=== PATIENT | female | born 1975 | race Caucasian/White ===

== ENCOUNTER 2018-05-04 09:26 | Day surgery (SDC) | payer OTHER ==
[2018-05-01 13:48] VITALS: BMI 31.1
[2018-05-04] MEDS ORDERED: MIDAZOLAM HCL 2 MG/2 ML SINGLE DOSE VIAL ONE (11:55)
[2018-05-04] MEDS ORDERED: PROPOFOL 20 ML ONE (12:54)
--- NOTE | 2018-05-04 13:41 | OP ---
Operative Note - Note: Operative Date: 05/04/18 Pre-Operative Diagnosis: Painful hardware both legs Operation: BALBIR both legs Surgeon: Juvenal Redmond Anesthesiologist/RETAIL ANALYTICS MANAGER: Omar Franco Anesthesia: General Operative Report Dictated: Yes
--- NOTE | 2018-05-04 13:42 | DS ---
Physical Examination Vital Signs: Vital Signs Temperature 97.8 F 05/04/18 10:54 Pulse Rate 64 05/04/18 10:54 Respiratory Rate 18 05/04/18 10:54 Blood Pressure 134/96 05/04/18 10:54 O2 Sat by Pulse Oximetry (%) 99 05/04/18 10:54 Discharge Summary Reason For Visit: SYMPTOMATIC HARDWARE - Instructions - Home Medications Comprehensive Discharge Medication List: Ambulatory Orders Albuterol Sulfate [Proair Respiclick] 90 mcg IH QID PRN 05/01/18 Methocarbamol [Robaxin -] 750 mg PO BID 05/01/18
[2018-05-04] MEDS ORDERED: ONDANSETRON 4 MG/2 ML VIAL ONE (14:11)
[2018-05-04] MEDS ORDERED: ONDANSETRON 4 MG/2 ML VIAL IVPUSH PRN (14:55)
[2018-05-04] MEDS ORDERED: oxyCODONE HCL 5 MG TABLET PO PRN ×2 (14:55)
[2018-05-04] MEDS ORDERED: LACTATED RINGERS SOLUTION 1,000 ML IV SCH (15:00)
[2018-05-04] MEDS ORDERED: oxyCODONE HCL 5 MG TABLET ONE (15:29)
[2018-05-04 18:25] VITALS: BP 110/63; PULSE 66; TEMP 98
--- NOTE | 2018-05-08 09:42 | PATH ---
Surgical Pathology Report Patient Name: JOYCE PICHARDO Med. Rec. #: [id number] /Age/Gender: 1975 (Age: 43) / F Account: [id number] Location: [facility] Taken: 05/04/2018 Received: 05/04/2018 Reported: 05/08/2018 Physicians: Juvenal Redmond M.D. Specimen(s) Received EXPLANTED HARDWARE Clinical History Painful hardware bilateral tibia Final Diagnosis EXPLANTED HARWARE, REMOVAL: CONSISTENT WITH HARDWARE. GROSS EXAMINATION ONLY. Electronically Signed Soniya Cid M.D. Gross Description Received fresh labeled "explanted hardware," are 4 ledezma metallic screws ranging from 4.0-5.0 cm in length. No soft tissue is present. No sections are submitted, gross only. /05/07/201805/07/2018
== END 2018-05-04 18:25 | disposition home or self-care (01) ==
LOC: FASU 09:26
PROVIDERS: ATTEND Orthopaedic Surgery
PROC: 0YP90YZ Removal of Other Device from Right Lower Extremity, Open Approach (ICD-10-PCS; 2018-05-04)
PROC: 0YPB0YZ Removal of Other Device from Left Lower Extremity, Open Approach (ICD-10-PCS; principal; 2018-05-04 12:59)
DX: T84.84XA Pain due to internal orthopedic prosthetic devices, implants and grafts, initial encounter (principal); Y79.3 Surgical instruments, materials and orthopedic devices (including sutures) associated with adverse incidents; Y92.9 Unspecified place or not applicable
CPT/HCPCS: 88300-TC; 94760